=== PATIENT | male | born 1990 | race Two or more races ===

== ENCOUNTER 2020-06-05 13:33 | Emergency (ER) | payer SELFPAY ==
[2020-06-05 13:39] VITALS: BMI 29.7
--- NOTE | 2020-06-05 13:39 | PDOC ---
Rapid Medical Evaluation Time Seen by Provider: 06/05/20 13:35 Medical Evaluation: 06/05/20 13:36 I have performed a brief in-person evaluation of this patient. The patient presents with a chief complaint of: R sided headache that radiates to R side of body x 1 week. No dizziness, n/v. Took advil w/ some relief. No p mhx Pertinent physical exam findings:well mireya, alert and HR 111 w/ sats of 94% on RA (of note, no resp ss) I have ordered the following:nothing The patient will proceed to the ED for further evaluation. Discharge Disposition - Diagnosis Headache Qualifiers: Headache type: unspecified Headache chronicity pattern: acute headache Intractability: not intractable Qualified Code(s): R51 - Headache - Referrals - Patient Instructions - Post Discharge Activity
[2020-06-05] MEDS ORDERED: ONDANSETRON 4 MG/2 ML VIAL IVPUSH ONE (14:21)
[2020-06-05] MEDS ORDERED: FAMOTIDINE 20 MG/50 ML IVPB 20 MG/50 ML MG IVPB ONE ×2 (14:22→14:48)
[2020-06-05] MEDS ORDERED: SODIUM CHLORIDE 1,000 ML IV STA ×2 (14:22→19:21)
[2020-06-05] MEDS ORDERED: ACETAMINOPHEN 1000 MG/100 ML VIAL (NON FORMULARY) IVPB ONE (14:35)
--- NOTE | 2020-06-05 14:41 | PDOC ---
History of Present Illness - General Chief Complaint: Pain Stated Complaint: PAIN Time Seen by Provider: 06/05/20 13:35 - History of Present Illness Initial Comments: 06/05/20 14:33 30 yo male with no pmh presents to the ED with right sided abdominal pain for the past week. Pt explains he has had similar pain in the past where it was after eating certain types of food. Pt explains that after eating some butter rolls he started having right sided abd pain with nausea, vomitting and diarrhea. Pt explains that it is a dull pain that radiates down his pelvis and up to his right shoulder. Pt says the pain has been constant, better with advil and worse with eating. Pt has exlained that he has had 20 episodes of nbnb emesis for one week and one episode today. Pt has assoc sxs of chills, fever of 101, diarrhea, and SOB for two days. Pt also has associated sxs of headache that is on right side pulsating in nature that has been going on for one week. Pt denies any constipation, chest pain with exertion, LOC, or neck pain. PMH:denies Meds: denies PSH: right knee Allergies: Denies Social: socially drinks; denies tobacco; denies drugs PCP: none Past History - Medical History Allergies/Adverse Reactions: Allergies Allergy/AdvReac Type Severity Reaction Status Date / Time No Known Allergies Allergy Verified 06/05/20 13:39 Home Medications: Ambulatory Orders Cephalexin [Keflex] 500 mg PO BID 5 Days #10 capsule 06/05/20 Famotidine [Pepcid] 20 mg PO BID #14 tablet 06/05/20 Ibuprofen [Advil -] mg PO QID PRN 06/05/20 Mag Hydrox/Al Hydrox/Simeth [Mylanta Suspension -] 5 ml PO Q6H #20 ml 06/05/20 COPD: No - Psycho-Social/Smoking History Smoking History: Never smoked - Substance Abuse Hx (Audit-C & DAST Scrn) How often the patient has a drink containing alcohol: Never Score: In Men: 4 or > Positive; In Women: 3 or > Positive: 0 Screen Result (Pos requires Nsg. Audit-10AR): Negative In the last yr the pt used illegal drug/Rx for NonMed reason: No Score: Yes response is considered Positive: 0 Screen Result (Positive result requires Nsg. DAST-10): Negative Review of Systems - Review of Systems Comments:: 06/05/20 14:41 GENERAL/CONSTITUTIONAL: Fevers and chills HEAD, EYES, EARS, NOSE AND THROAT: No change in vision. No ear pain or discharge. No sore throat. CARDIOVASCULAR: SOB RESPIRATORY: No cough, wheezing, or hemoptysis. GASTROINTESTINAL: Nausea, vomitting and diarrhea GENITOURINARY: No dysuria, frequency, or change in urination. MUSCULOSKELETAL: No joint or muscle swelling or pain. No neck or back pain. SKIN: No rash NEUROLOGIC: headache, vertigo, loss of consciousness, or change in streng th/sensation. ENDOCRINE: No increased thirst. No abnormal weight change HEMATOLOGIC/LYMPHATIC: No anemia, easy bleeding, or history of blood clots. ALLERGIC/IMMUNOLOGIC: No hives or skin allergy *Physical Exam - Vital Signs Last Vital Signs Temp Pulse Resp BP Pulse Ox 99 F 119 H 18 148/91 94 L 06/05/20 13:37 06/05/20 13:37 06/05/20 13:37 06/05/20 13:37 06/05/20 13:37 - Physical Exam 06/05/20 14:42 GENERAL: Awake, alert, and fully oriented, in no acute distress HEAD: No signs of trauma, normocephalic, atraumatic EYES: PERRLA, EOMI, sclera anicteric, conjunctiva clear ENT: Auricles normal inspection, hearing grossly normal, nares patent, oropharynx clear without exudates. Moist mucosa NECK: Normal ROM, supple, no lymphadenopathy, JVD, or masses LUNGS: No distress, speaks full sentences, clear to auscultation bilaterally HEART: Regular rate and rhythm, normal S1 and S2, no murmurs, rubs or gallops, peripheral pulses normal and equal bilaterally. ABDOMEN: Soft, nontender, normoactive bowel sounds. No guarding, no rebound. No masses. Positive Martin sign. EXTREMITIES : Normal inspection, Normal range of motion, no edema. No clubbing or cyanosis. NEUROLOGICAL: Cranial nerves II through XII grossly intact. Normal speech, normal gait, no focal sensorimotor deficits SKIN: Warm, Mild diaphoresis, normal turgor, no rashes or lesions noted ED Treatment Course - LABORATORY CBC & Chemistry Diagram: 06/05/20 15:04 06/05/20 15:04 - RADIOLOGY Radiology Studies Ordered: Category Date Time Status GALLBLADDER US [US] Stat Ultrasound 06/05/20 14:29 Ordered Medical Decision Making - Medical Decision Making DDx: - Cholecystitis - PUD - Viral gastritis - Appendicitis 06/05/20 14:44 30 yo male with no pmh presenting to ED with R sided abd pain, with nausea and vomitting for the last week. Pt had positive martin sign suspicious for cholecy stitis. Will get labs CBC, CMP, Lipase, gallbladder US. Will also treat with pepcid, zofran and tylenol. Will reassess. 06/05/20 15:56 Viewed pts RUQ Ultrasound which showed no gallbladder pathology. Pt lab has elevated WBC to 17 and pt still has 10/[address] abd and pelvis with IV contrast to rule out appendecitis. 06/05/20 18:[address] showed no abdominal pathology but possible COVID 19. Pt was made aware of CT results. Pt sat at rest is 97% right now and when walking around the pt sat only went down to 94%. Pt still eliciting abdominal pain ordered meds malox and viscous lidocaine and will reassess pt. 06/05/20 19:22 Pt after viscous lidocaine and malox was feeling better, but vitals were tachy with fever so i gave motrin and liter of fluid and cephalexin to treat for UTI. Pt was told about UTI and Pt was signed out to night team. Discharge - Discharge Information Problems reviewed: Yes Clinical Impression/Diagnosis: Abdominal pain Qualifiers: Abdominal location: right upper quadrant Qualified Code(s): R10.11 - Right upper quadrant pain Condition: Improved Disposition: HOME - Additional Discharge Information Prescriptions: Cephalexin [Keflex] 500 mg PO BID 5 Days #10 capsule Mag Hydrox/Al Hydrox/Simeth [Mylanta Suspension -] 5 ml PO Q6H #20 ml Famotidine [Pepcid] 20 mg PO BID #14 tablet - Follow up/Referral Referrals: [facility] [place] Internal Med at [place] [Provider Group] - Patient Discharge Instructions Patient Printed Discharge Instructions: DI for Abdominal Pain-Adult, SJR- Coronavirus Instructions Additional Instructions: You came to the ED because you had right upper quadrant abdominal pain. You likely have viral sxs. At the ED you were given labs and imaging. The labs showed that you had an elevated white blood cell count indicating an infection. The gallbladder scan showed no pathology of your gallbladder and CT scan of the abdomen showed no abdominal pathology, but it did show suspicion for covid 19. The tx of which is supportive. You were given pepcid, zofran, malox, and viscous lidocaine for your abdominal sxs. You assured me that you felt better and you were able to tolerate food by mouth. For further sxs please continue taking -pepcid 20mg PO every night at bedtime - keep hydrating and rest Your work up is not complete without following up with PCP and gastroenteroly (Dr. Mcneal) Please return to the ED: - Worsening Shortness of breath - Bloody vomiting - Intractable Chest pain - Intractable vomiting - unable to eat anything by mouth - any other emergencies Get medical help right away Lleg al servicio de urgencias porque eagle dolor abdominal en el cuadrante superior derecho. Es probable que tenga sxs virales. En el servicio de urgencias, te dieron laboratorios e imgenes. Los laboratorios mostraron que eagle un recuento elevado de glbulos blancos que indicaba rafia infeccin. La exploracin de la vescula biliar no mostr patologa de la vescula biliar y la tomografa computarizada del abdomen no mostr patologa abdominal, kwesi s mostr sospecha de covid 19. La transmisin de la cual es de apoyo. Le dieron pepido, zofran, malox y lidocana viscosa para stefani abdominales. Me asegur que se senta mejor y que poda tolerar la comida por va oral. Para ms mensajes por favor contine tomando -pepcid 20mg PO cada noche a la hora de acostarse - Seguir hidratando y descansar Perez trabajo no est completo sin seguir con PCP y gastroenterologa (Dr. Mcneal) Por favor regrese al ED: - Empeoramiento de la falta de aliento - vmitos con fatou - Dolor en el pecho intratable - vmitos intratables - incapaz de comer nada por la boca - cualquier otra emergencia Obtenga peña stover de inmediato Print Language: DUTCH - Post Discharge Activity
[2020-06-05] MEDS ORDERED: ACETAMINOPHEN INJECTION 100 ML IVPB ONE (14:48)
[2020-06-05 15:14] LABS: BASO % 0.4 % (0-2.0); HEMATOCRIT 42.3 % (35.4-49); HEMOGLOBIN 14.2 GM/dL (11.7-16.9); LYMPH % 8.8 % (8-40); MCH 28.7 pg (25.7-33.7); MCHC 33.6 g/dl (32.0-35.9); MEAN CELL VOLUME 85.3 fl (80-96); MEAN PLT VOLUME 8.8 fl (7.5-11.1); MONO % 3.9 % (3.8-10.2); NEUT % 86.9 % (42.8-82.8); PLATELET COUNT 268 K/MM3 (134-434); RBC 4.96 M/mm3 (4.00-5.60); RDW 13.8 % (11.9-15.9); WHITE BLOOD COUNT 17.5 K/mm3 (4.0-10.0)
[2020-06-05 15:40] LABS: ALBUMIN 3.2 g/dl (3.4-5.0); BILIRUBIN,TOTAL 0.9 mg/dL (0.2-1); BLOOD UREA NITROGEN 9.9 mg/dL (7-18); CALCIUM 9.8 mg/dL (8.5-10.1); CREATININE 0.8 mg/dL (0.55-1.3); POTASSIUM 4.6 mmol/L (3.5-5.1); TOT PROT 8.4 g/dl (6.4-8.2)
--- NOTE | 2020-06-05 16:13 | PDOC ---
Documentation entered by Samantha Lazo SCRIBE, acting as scribe for Megan Roth MD. Megan Roth MD: This documentation has been prepared by the Violet soto Brenda, SCRIBE, under my direction and personally reviewed by me in its entirety. I confirm that the documentation accurately reflects all work, treatment, procedures, and medical decision making performed by me. Attending Attestation - Resident Resident Name: Jony Wagner - ED Attending Attestation I have performed the following: I have examined & evaluated the patient, The case was reviewed & discussed with the resident, I agree w/resident's findings & plan, Exceptions are as noted - HPI HPI: 06/05/20 14:30 30YOM with h/o who p/w right-sided abdominal pain for the past week worse after he eats, right-sided headache that radiates to the whole right side of his body, as well as persistent nausea, as well as many episodes of vomiting yesterday and 1 episode today. He denies any f/c, back pain, chest pain, SOB, lightheadedness, dizziness, palpitations, or other issues. He does note having taken Advil with some relief at home. - Physicial Exam PE: 06/05/20 14:36 GENERAL: nontoxic-appearing, A/Ox4, no distress, answers questions appropriately HEENT: PERRLA, EOMI, moist mucous membranes NECK/BACK: no midline ttp, no spinal stepoff or deformity, no hematoma, full ROM, neck supple CARDIOVASCULAR: regular rate/rhythm, no MGR, strong peripheral pulses, capillary refill <2 seconds, extremities wwp, no edema LUNGS/RESPIRATORY: no respiratory distress, CTAB GI/ABDOMEN: symmetric [id number], normoactive BS, soft, RUQ ttp with positive Martin's sign, no midline pulsatile masses : no CVA tenderness MSK/EXTREMITIES: no muscle atrophy, no acute deformity SKIN: warm and dry, no pallor, no jaundice, no rash, no pathologic-appearing bruising, no skin breakdown, no cuts, no lesions NEUROLOGICAL: GCS 15, CN II-XII grossly intact, 5/5 strength proximally and distally, no facial droop - Medical Decision Making 06/05/20 16:04 30YOM without PMH p/w RUQ pain. Initial Vital Signs Temp Pulse Resp BP Pulse Ox 99 F 119 H 18 148/91 94 L 06/05/20 13:37 06/05/20 13:37 06/05/20 13:37 06/05/20 13:37 06/05/20 13:37 DDX IBNLT: Most likely cholecystitis or choledocholithiasis given the character and location of pain and tenderness. Other possibilities gastritis/PUD, pancreatitis, etc. Less likely but still considered are appendicitis, colitis, diverticulitis, renal colic, etc. W/U ordered: CBCD CMP UA UCx US TX ordered: IVF Ofirmev Pepcid CBCD WBC 17.5 K/mm3 (4.0-10.0) H 06/05/20 15:04 RBC 4.96 M/mm3 (4.00-5.60) 06/05/20 15:04 Hgb 14.2 GM/dL (11.7-16.9) 06/05/20 15:04 Hct 42.3 % (35.4-49) 06/05/20 15:04 MCV 85.3 fl (80-96) 06/05/20 15:04 MCHC 33.6 g/dl (32.0-35.9) 06/05/20 15:04 RDW 13.8 % (11.9-15.9) 06/05/20 15:04 Plt Count 268 K/MM3 (134-434) 06/05/20 15:04 MPV 8.8 fl (7.5-11.1) 06/05/20 15:04 CMP Sodium 138 mmol/L (136-145) 06/05/20 15:04 Potassium 4.6 mmol/L (3.5-5.1) 06/05/20 15:04 Chloride 100 mmol/L (98-107) 06/05/20 15:04 Carbon Dioxide 27 mmol/L (21-32) 06/05/20 15:04 Anion Gap 11 MMOL/L (8-16) 06/05/20 15:04 BUN 9.9 mg/dL (7-18) 06/05/20 15:04 Creatinine 0.8 mg/dL (0.55-1.3) 06/05/20 15:04 Random Glucose 108 mg/dL (74-106) H 06/05/20 15:04 Calcium 9.8 mg/dL (8.5-10.1) 06/05/20 15:04 Total Bilirubin 0.9 mg/dL (0.2-1) 06/05/20 15:04 AST 70 U/L (15-37) H 06/05/20 15:04 ALT 127 U/L (13-61) H 06/05/20 15:04 Alkaline Phosphatase 110 U/L (45-117) 06/05/20 15:04 Total Protein 8.4 g/dl (6.4-8.2) H 06/05/20 15:04 Albumin 3.2 g/dl (3.4-5.0) L 06/05/20 15:04 US/GALLBLADDER US Right upper quadrant sonogram HISTORY: Rule out cholecystitis COMPARISON: None FINDINGS: The liver is mildly enlarged measuring 17.8 cm with moderately increased echogenicity compatible with fatty infiltration There are no gallstones No abnormal bile duct dilatation. Common bile duct measures 0.3 cm. No abnormal gallbladder wall thickening Visualized portions of the pancreas, aorta and IVC unremarkable The right kidney measures 10.6 cm There is lobulation in the midportion of the right kidney mimicking a renal mass. Measures approximately 3.3 cm IMPRESSION: Fatty enlarged liver No evidence of cholelithiasis or cholecystitis Probable lobulation of the right kidney which can be confirmed by outpatient CT scan or MRI Unclear cause of abdominal pain. Patient's pain continues, he continues to have mild RUQ pain, and he does have WBC 17.5. Getting CT abdomen/pelvis with IV contrast. CT/ABDOMEN PELVIS CT WITH CONTR History: abdominal pain, rule out appendicitis CT Scan of the abdomen and pelvis without oral but with IV contrast; 100 cc Omnipaque 350 FINDINGS: Visualized lower lung abad demonstrate bilateral patchy groundglass infiltrates The liver, spleen, adrenal glands and pancreas are unremarkable. There are no gallstones. There is no hydronephrosis, renal masses or renal calculi. There is no retroperitoneal lymphadenopathy. There is no abdominal aortic aneurysm. There are no inflammatory changes of the appendix or colon. There are no fluid collections in the abdomen or pelvis. There is no bowel obstruction. The urinary bladder and {prostate are unremarkable. There are fat containing inguinal hernias bilaterally IMPRESSION: No evidence of acute appendicitis Patchy groundglass infiltrates involving the lower lung abad bilaterally which can be seen in COVID-19 infection. Vital Signs - 24 hr 06/05/20 06/05/20 19:10 20:22 Temperature 101.4 F H 101.0 F H Pulse Rate [ 122 H 110 H Right Radial] Respiratory 16 19 Rate Blood Pressure 158/98 148/97 [Left Arm] O2 Sat by Pulse 95 99 Oximetry (%) Patient is comfortable managing his symptoms at home. Repeat exam is benign, tachycardia appropriate amount for fever, patient feels much better, SpO2 99% on RA.Night team resident counsels the patient on quarantine procedures for likely COVID-19 infection, and on return precautions. He will take Tylenol at home for fever. Discharge - Discharge Information Problems reviewed: Yes Clinical Impression/Diagnosis: COVID-19 Abdominal pain Qualifiers: Abdominal location: right upper quadrant Qualified Code(s): R10.11 - Right upper quadrant pain Condition: Stable Disposition: HOME - Admission No - Additional Discharge Information Prescriptions: Cephalexin [Keflex] 500 mg PO BID 5 Days #10 capsule Mag Hydrox/Al Hydrox/Simeth [Mylanta Suspension -] 5 ml PO Q6H #20 ml Famotidine [Pepcid] 20 mg PO BID #14 tablet - Follow up/Referral Referrals: [facility] [place] Internal Med at [place] [Provider Group] - Patient Discharge Instructions Patient Printed Discharge Instructions: DI for Abdominal Pain-Adult, SJR- Coronavirus Instructions Additional Instructions: You came to the ED because you had right upper quadrant abdominal pain. You likely have viral sxs. At the ED you were given labs and imaging. The labs showed that you had an elev ated white blood cell count indicating an infection. The gallbladder scan showed no pathology of your gallbladder and CT scan of the abdomen showed no abdominal pathology, but it did show suspicion for covid 19. The tx of which is supportive. You were given pepcid, zofran, malox, and viscous lidocaine for your abdominal sxs. You assured me that you felt better and you were able to tolerate food by mouth. For further sxs please continue taking -pepcid 20mg PO every night at bedtime - keep hydrating and rest Your work up is not complete without following up with PCP and gastroenteroly (Dr. Mcneal) Please return to the ED: - Worsening Shortness of breath - Bloody vomiting - Intractable Chest pain - Intractable vomiting - unable to eat anything by mouth - any other emergencies Get medical help right away Lleg al servicio de urgencias porque eagle dolor abdominal en el cuadrante superior derecho. Es probable que tenga sxs virales. En el servicio de urgencias, te dieron laboratorios e imgenes. Los laboratorios mostraron que eagle un recuento elevado de glbulos blancos que indicaba rafia infeccin. La exploracin de la vescula biliar no mostr patologa de la vescula biliar y la tomografa computarizada del abdomen no mostr patologa abdominal, kwesi s mostr sospecha de covid 19. La transmisin de la cual es de apoyo. Le dieron pepido, zofran, malox y lidocana viscosa para stefani abdominales. Me asegur que se senta mejor y que poda tolerar la comida por va oral. Para ms mensajes por favor contine tomando -pepcid 20mg PO cada noche a la hora de acostarse - Seguir hidratando y descansar Perez trabajo no est completo sin seguir con PCP y gastroenterologa (Dr. Mcneal) Por favor regrese al ED: - Empeoramiento de la falta de aliento - vmitos con fatou - Dolor en el pecho intratable - vmitos intratables - incapaz de comer nada por la boca - cualquier otra emergencia Obtenga ayuda mdica de inmediato Print Language: PORTUGUESE - Post Discharge Activity
[2020-06-05 17:28] LABS: EPI CELLS 27 /uL (0-25.1); HYALINE CASTS 4 /uL (0-3.1); URINE APPEARANCE CLEAR; URINE BACTERIA 20 /uL (0-1359); URINE BILIRUBIN 2+ (NEGATIVE); URINE COLOR DK YELLOW; URINE GLUCOSE (UA) NEGATIVE (NEGATIVE); URINE KETONE 2+ (NEGATIVE); URINE LEUK ESTERASE NEGATIVE (NEGATIVE); URINE NITRITE POSITIVE (NEGATIVE); URINE PROTEIN 2+ (NEGATIVE); URINE WBC 24 /uL (0-25.8)
[2020-06-05 17:53] LABS: URINE RBC 144 /uL (0-23.9)
[2020-06-05] MEDS ORDERED: LIDOCAINE VISCOUS 2% ORAL/TOP 20 ML UNIT-DOSE CUP MM ONE (17:59)
[2020-06-05] MEDS ORDERED: MAG HYDROX/AL HYDROX/SIMETH 30 ML UNIT-DOSE CUP PO ONE (17:59)
[2020-06-05] MEDS ORDERED: MAG HYDROX/AL HYDROX/SIMETH 30 ML UNIT-DOSE CUP ONE (18:35)
[2020-06-05] MEDS ORDERED: LIDOCAINE VISCOUS 2% ORAL/TOP 20 ML UNIT-DOSE CUP ONE (18:50)
[2020-06-05] MEDS ORDERED: ACETAMINOPHEN 325 MG TABLET (FP) PO ONE (19:09)
[2020-06-05] MEDS ORDERED: IBUPROFEN 600 MG TABLET (FP) PO ONE ×2 (19:18→19:22)
[2020-06-05] MEDS ORDERED: CEPHALEXIN 250 MG/5 ML ORAL SUSPENSION PO ONE (19:21)
[2020-06-05] MEDS ORDERED: CEPHALEXIN MONOHYDRATE 500 MG CAPSULE (UD) ONE (19:25)
[2020-06-05] MEDS ORDERED: CEPHALEXIN MONOHYDRATE 500 MG CAPSULE (UD) PO ONE (19:27)
--- NOTE | 2020-06-05 19:35 | PDOC ---
*Physical Exam - Vital Signs Last Vital Signs Temp Pulse Resp BP Pulse Ox 101.4 F H 122 H 16 158/98 95 06/05/20 19:10 06/05/20 19:10 06/05/20 19:10 06/05/20 19:10 06/05/20 19:10 ED Treatment Course - LABORATORY CBC & Chemistry Diagram: 06/05/20 15:04 06/05/20 15:04 - ADDITIONAL ORDERS Additional order review: Laboratory Results 06/05/20 06/05/20 06/05/20 16:32 15:04 15:04 Sodium 138 Potassium 4.6 Chloride 100 Carbon Dioxide 27 Anion Gap 11 BUN 9.9 Creatinine 0.8 Est GFR (CKD-EPI)AfAm 139.91 Est GFR (CKD-EPI)NonAf 120.72 Random Glucose 108 H Calcium 9.8 Total Bilirubin 0.9 AST 70 H ALT 127 H Alkaline Phosphatase 110 Total Protein 8.4 H Albumin 3.2 L Lipase 100 Urine Color Dk yellow Urine Appearance Clear Urine pH 6.0 Ur Specific [place] 1.041 H Urine Protein 2+ H Urine Glucose (UA) Negative Urine Ketones 2+ H Urine Blood 1+ H Urine Nitrite Positive H Urine Bilirubin 2+ H Urine Urobilinogen 2.0 Ur Leukocyte Esterase Negative Urine WBC (Auto) 24 Urine RBC (Auto) 144 Urine Casts (Auto) 4 U Epithel Cells (Auto) 27 Urine Bacteria (Auto) 20 06/05/20 15:04 RBC 4.96 MCV 85.3 MCHC 33.6 RDW 13.8 MPV 8.8 Neutrophils % 86.9 H Lymphocytes % 8.8 Monocytes % 3.9 Eosinophils % 0.0 Basophils % 0.4 - Medications Given in the ED: ED Medications Discontinued Medications Generic Name Dose Route Start Last Admin Trade Name Freq PRN Reason Stop Dose Admin Acetaminophen 1,000 mg 06/05/20 14:35 06/05/20 15:04 Ofirmev Injection - IVPB 06/05/20 14:36 1,000 mg ONCE ONE Administration Acetaminophen 325 mg 06/05/20 19:09 06/05/20 19:19 Tylenol - PO 06/05/20 19:10 Not Given ONCE ONE Al Hydroxide/Mg Hydroxide 30 ml 06/05/20 17:59 06/05/20 18:36 Mylanta Oral Suspension - PO 07/18/20 18:00 30 ml ONCE ONE Administration Famotidine/Sodium Chloride 20 mg in 50 mls @ 100 mls/hr 06/05/20 14:22 06/05/20 15:04 Pepcid 20 Mg Premixed Ivpb - IVPB 06/05/20 14:51 100 mls/hr ONCE ONE Administration Sodium Chloride 1,000 mls @ 1,000 mls/hr 06/05/20 14:22 06/05/20 15:07 Normal Saline - IV 06/05/20 15:21 1,000 mls/hr ASDIR STA Administration Lidocaine HCl 20 ml 06/05/20 17:59 06/05/20 18:56 Xylocaine 2% Viscous Oral - MM 06/05/20 18:00 20 ml ONCE ONE Administration Ondansetron HCl 4 mg 06/05/20 14:21 06/05/20 15:04 Zofran Injection IVPUSH 06/05/20 14:22 4 mg ONCE ONE Administration Medical Decision Making - Medical Decision Making 06/05/20 19:30 Patient feels better s/p medication On reassessment vitals, patient febrile with tachycardia Ordered for 1L IVF and Motrin, Keflex Plan to sent with Keflex for UTI Anticipated Dispo: Home pending vitals improvement 06/05/20 20:55 Patient feels even better following IVF. Case discussed with Dr. Rodriguez, plan for discharge with PCP follow up. Discharge - Discharge Information Problems reviewed: Yes Clinical Impression/Diagnosis: Abdominal pain Qualifiers: Abdominal location: right upper quadrant Qualified Code(s): R10.11 - Right upper quadrant pain Condition: Improved Disposition: HOME - Admission No - Additional Discharge Information Prescriptions: Cephalexin [Keflex] 500 mg PO BID 5 Days #10 capsule Mag Hydrox/Al Hydrox/Simeth [Mylanta Suspension -] 5 ml PO Q6H #20 ml Famotidine [Pepcid] 20 mg PO BID #14 tablet - Follow up/Referral Referrals: [facility] [place] Internal Med at [place] [Provider Group] - Patient Discharge Instructions Patient Printed Discharge Instructions: DI for Abdominal Pain-Adult, SJR- Coronavirus Instructions Additional Instructions: You came to the ED because you had right upper quadrant abdominal pain. You likely have viral sxs. At the ED you were given labs and imaging. The labs showed that you had an elevated white blood cell count indicating an infection. The gallbladder scan showed no pathology of your gallbladder and CT scan of the abdomen showed no abdominal pathology, but it did show suspicion for covid 19. The tx of which is supportive. You were given pepcid, zofran, malox, and viscous lidocaine for your abdominal sxs. You assured me that you felt better and you were able to tolerate food by mouth. For further sxs please continue taking -pepcid 20mg PO every night at bedtime - keep hydrating and rest Your work up is not complete without following up with PCP and gastroenteroly (Dr. Mcneal) Please return to the ED: - Worsening Shortness of breath - Bloody vomiting - Intractable Chest pain - Intractable vomiting - unable to eat anything by mouth - any other emergencies Get medical help right away Lleg al servicio de urgencias porque eagle dolor abdominal en el cuadrante superior derecho. Es probable que tenga sxs virales. En el servicio de urgencias, te dieron laboratorios e imgenes. Los laboratorios mostraron que eagle un recuento elevado de glbulos blancos que indicaba rafia infeccin. La exploracin de la vescula biliar no mostr patologa de la vescula biliar y la tomografa computarizada del abdomen no mostr patologa abdominal, kwesi s mostr sospecha de covid 19. La transmisin de la cual es de apoyo. Le dieron pepido, zofran, malox y lidocana viscosa para stefani abdominales. Me asegur que se senta mejor y que poda tolerar la comida por va oral. Para ms mensajes por favor contine tomando -pepcid 20mg PO cada noche a la hora de acostarse - Seguir hidratando y descansar Perez trabajo no est completo sin seguir con PCP y gastroenterologa (Dr. Mcneal) Por favor regrese al ED: - Empeoramiento de la falta de aliento - vmitos con fatou - Dolor en el pecho intratable - vmitos intratables - incapaz de comer nada por la boca - cualquier otra emergencia Obtenga ayuda mdica de inmediato Print Language: UKRAINIAN - Post Discharge Activity
[2020-06-05 20:22] VITALS: BP 148/97; PULSE 110; TEMP 101
== END 2020-06-05 21:13 | disposition home or self-care (01) ==
LOC: JER 13:33
PROC: 3E033NZ Introduction of Analgesics, Hypnotics, Sedatives into Peripheral Vein, Percutaneous Approach (ICD-10-PCS; principal; 2020-06-05)
PROC: 3E033GC Introduction of Other Therapeutic Substance into Peripheral Vein, Percutaneous Approach (ICD-10-PCS; 2020-06-05)
PROC: 3E0337Z Introduction of Electrolytic and Water Balance Substance into Peripheral Vein, Percutaneous Approach (ICD-10-PCS; 2020-06-05)
DX: R51 Headache (principal); R10.11 Right upper quadrant pain
CPT/HCPCS: 36415; 74177-TC; 76705-TC; 80053; 81003; 83690; 85025; 87086; 99285-25; J0131; Q9967

== ENCOUNTER 2022-09-03 20:18 | Emergency (ER) | payer OTHER ==
[2022-09-03 20:29] VITALS: BP 148/82; PULSE 87; RESP 18; TEMP 98.1; BMI 25.8
[2022-09-03] MEDS ORDERED: SODIUM CHLORIDE 0.9% 500 ML INFUS.BAG IV ONE (21:01)
[2022-09-03] MEDS ORDERED: ACETAMINOPHEN 1000 MG/100 ML BAG IVPB ONE (21:01)
[2022-09-03] MEDS ORDERED: ACETAMINOPHEN INJECTION 100 ML IVPB ONE (21:43)
[2022-09-03 21:54] LABS: HEMOGLOBIN 16.2 GM/dL (11.7-16.9); MCH 28.7 pg (25.7-33.7); MCHC 33.7 g/dl (32.0-35.9); MEAN CELL VOLUME 85.2 fl (80-96); MEAN PLT VOLUME 8.7 fl (7.5-11.1); PLATELET COUNT 245 10^3/uL (134-434); RBC 5.63 M/mm3 (4.00-5.60); WHITE BLOOD COUNT 21.3 K/mm3 (4.0-10.0)
[2022-09-03 22:14] LABS: CALCIUM 10.3 mg/dL (8.5-10.1)
[2022-09-03 22:15] LABS: ALBUMIN 4.4 g/dl (3.4-5.0); BLOOD UREA NITROGEN 14.2 mg/dL (7-18)
[2022-09-03 22:18] LABS: CREATININE 0.9 mg/dL (0.55-1.3)
[2022-09-03 22:20] LABS: BILIRUBIN,TOTAL 0.5 mg/dL (0.2-1); TOT PROT 8.9 g/dl (6.4-8.2)
[2022-09-03 22:22] LABS: ANISOCYTOSIS 0; HELMET CELLS 0; HOWELL-JOLLY BODIES 0; MACROCYTOSIS 0; OVALOCYTE 0; ROULEAU 0; SICKELED CELLS 0; TARGET CELLS 0; TEAR DROP CELLS 0; TOXIC GRANULATION 0
== END 2022-09-04 00:01 | disposition home or self-care (01) ==
LOC: JER 20:18
PROC: 3E033GC Introduction of Other Therapeutic Substance into Peripheral Vein, Percutaneous Approach (ICD-10-PCS; principal; 2022-09-03)
DX: R19.7 Diarrhea, unspecified (principal)
CPT/HCPCS: 0241U-QW; 36415; 71046-TC-FY; 80053; 84484; 85025; 93005; 93010; 96374; 99285-25

== ENCOUNTER 2025-03-27 13:01 | Emergency (ER) | payer OTHER ==
[2025-03-27 13:26] VITALS: BP 143/88; PULSE 80; RESP 16; TEMP 98.6; BMI 29.9
[2025-03-27] MEDS ORDERED: FAMOTIDINE 20 MG/50 ML IVPB 20 MG/50 ML MG IVPB ONE (14:19)
[2025-03-27] MEDS ORDERED: ACETAMINOPHEN INJECTION 100 ML ONE (14:19)
[2025-03-27] MEDS ORDERED: METOCLOPRAMIDE HCL INJECTION 10 MG/2 ML VIAL ONE (14:19)
[2025-03-27] MEDS: SODIUM CHLORIDE 0.9% 500 ML INFUS.BAG IV ONE (14:41)
[2025-03-27] MEDS: ACETAMINOPHEN 1000 MG/100 ML BAG IVPB ONE (14:41)
[2025-03-27] MEDS: METOCLOPRAMIDE HCL INJECTION 10 MG/2 ML VIAL IVPUSH ONE (14:42)
[2025-03-27] MEDS: FAMOTIDINE 20 MG/50 ML IVPB 20 MG/50 ML MG IVPB ONE (14:42)
[2025-03-27 14:46] LABS: ABSOLUTE IMMATURE GRANULOCYTES 0.08 x10^3/uL (0.0-0.031); BASOPHILS # 0.04 x10^3/uL (0.01-0.08); EOSINOPHIL % 0.1 % (0.8-7.0); EOSINOPHILS # 0.01 x10^3/uL (0.04-0.54); HEMATOCRIT 45.7 % (40.1-51.0); HEMOGLOBIN 15.1 g/dL (13.7-17.5); MEAN CELL VOLUME 85.4 fl (79.0-92.2); MEAN PLT VOLUME 10.1 fl (9.4-12.4); MONOCYTE # 0.81 x10^3/uL (0.30-0.82); PLATELET COUNT 207 x10^3/uL (163-337); RDW 13.3 % (12.0-15.6)
[2025-03-27 15:10] LABS: POTASSIUM 4.7 mmol/L (3.5-5.1)
[2025-03-27 15:14] LABS: BLOOD UREA NITROGEN 9.8 mg/dL (7-18); CALCIUM 9.9 mg/dL (8.5-10.1)
[2025-03-27 15:16] LABS: CREATININE 0.8 mg/dL (0.55-1.3)
[2025-03-27 15:18] LABS: BILIRUBIN,TOTAL 0.5 mg/dL (0.2-1)
[2025-03-27 15:19] LABS: TOT PROT 8.3 g/dl (6.4-8.2)
[2025-03-27 20:02] LABS: HIV INTERPRETATION NEGATIVE (NEGATIVE)
[2025-03-27 20:03] LABS: HCV DIAGNOSTIC IN-HOUSE W/RFLX NON-REACTIVE (NONREACTIVE)
== END 2025-03-27 16:14 | disposition home or self-care (01) ==
LOC: JER 13:01
PROC: 3E033GC Introduction of Other Therapeutic Substance into Peripheral Vein, Percutaneous Approach (ICD-10-PCS; principal; 2025-03-27)
PROC: 3E033NZ Introduction of Analgesics, Hypnotics, Sedatives into Peripheral Vein, Percutaneous Approach (ICD-10-PCS; 2025-03-27)
PROC: 3E033GC Introduction of Other Therapeutic Substance into Peripheral Vein, Percutaneous Approach (ICD-10-PCS; 2025-03-27)
DX: R51.9 Headache, unspecified (principal); R10.13 Epigastric pain; R10.33 Periumbilical pain; R11.2 Nausea with vomiting, unspecified; R68.83 Chills (without fever)
CPT/HCPCS: 36415; 80053; 83690; 83735; 85025; 86803; 87389; 99284-25; J0131